=== PATIENT | female | born 1965 | race Caucasian/White ===

== ENCOUNTER 2016-12-23 14:56 | Emergency (ER) | payer BC ==
[~2016-12-23] VITALS: Ht 162.6 cm; Wt 46.8 kg
[2016-12-23 14:59] VITALS: BP 163/73; TEMP 98.2
[2016-12-23] MEDS ORDERED: CELEXA10 MG PO (15:03)
[2016-12-23] MEDS ORDERED: ZOFRAN ODT4 MG PO (16:55)
[2016-12-23] MEDS ORDERED: NORCO 325 MG-51 TAB PO (16:55)
[2016-12-23 17:10] VITALS: PULSE 72
== END 2016-12-23 17:10 | disposition home or self-care (01) ==
LOC: COL.ER 14:56
DX: S46.912A Strain of unspecified muscle, fascia and tendon at shoulder and upper arm level, left arm, initial encounter (principal); W10.8XXA Fall (on) (from) other stairs and steps, initial encounter; Y92.008 Other place in unspecified non-institutional (private) residence as the place of occurrence of the external cause
CPT/HCPCS: J1885

== ENCOUNTER 2017-01-29 11:01 | Emergency (ER) | payer BC ==
[~2017-01-29] VITALS: Ht 162.6 cm; Wt 47.7 kg
[~2017-01-29 11:01] MED LIST: CELEXA10 MG PO; NORCO 325 MG-51 TAB PO; ZOFRAN ODT4 MG PO
[2017-01-29 11:06] VITALS: BP 146/75; TEMP 98.1
[2017-01-29] MEDS ORDERED: ALEVE 220MG220 MG PO (11:08)
[2017-01-29] MEDS ORDERED: NORCO 325 MG-51 TAB PO (12:15)
[2017-01-29 12:23] VITALS: PULSE 66
== END 2017-01-29 12:34 | disposition home or self-care (01) ==
LOC: COL.ER 11:01
DX: S62.316A Displaced fracture of base of fifth metacarpal bone, right hand, initial encounter for closed fracture (principal); F17.210 Nicotine dependence, cigarettes, uncomplicated; W22.8XXA Striking against or struck by other objects, initial encounter; Y92.830 Public park as the place of occurrence of the external cause; Z86.69 Personal history of other diseases of the nervous system and sense organs

== ENCOUNTER → 2017-09-08 | Outpatient (CLI) | payer OTHER ==
[~2017-09-08] MED LIST changes: +ALEVE 220MG220 MG PO; +ASPIRIN 81M81 MG/TA2 PO; +FLEXERIL 1010 MG/TAB PO
== END ==
LOC: COL.PUL 09:48
DX: Z02.71 Encounter for disability determination (principal); Z87.891 Personal history of nicotine dependence; Z90.49 Acquired absence of other specified parts of digestive tract

== ENCOUNTER 2018-01-12 11:31 | Emergency (ER) | payer SELFPAY ==
[~2018-01-12] VITALS: Ht 162.6 cm; Wt 57.0 kg
[2018-01-12 11:36] VITALS: TEMP 98.9
[2018-01-12 12:02] LABS: BASO # 0.1 (0.0-0.2); BASO % 0.6 % (0.0-2.0); EOS # 0.2 (0.0-0.7); EOS % 1.9 % (0-4.0); GRAN % 59.2 % (42.2-75.2); HEMATOCRIT 43.2 % (37.0-47.0); HEMOGLOBIN 14.8 g/dl (12.5-16.0); LYMPH # 2.7 (1.2-3.4); LYMPH % 32.3 % (20.0-51.0); MEAN CELL VOLUME 91 fl (80.0-100.0); MEAN CORPUSCULAR HEMOGLOBIN 31 pg (27.0-31.0); MEAN CORPUSCULAR HGB CONC 34 g/dl (33.0-37.0); MEAN PLATELET VOLUME 9.7 fl (7.4-10.4); MONO # 0.5 (0.1-0.6); MONO % 5.8 % (1.7-9.3); PLATELET COUNT 350 K/mm3 (130-400); RED BLOOD COUNT 4.74 M/mm3 (4.10-5.30); REDCELL DISTRIBUTION WIDTH-CV 12.2 % (11.5-14.5)
[2018-01-12 12:12] LABS: ALANINE AMINOTRANSFERASE 25 U/L (9-52); ALBUMIN 4.6 gm/dL (3.5-5.0); ALKALINE PHOSPHATASE 154 U/L (50-136); ANION GAP 12 mmol/L (7-16); AST,SGOT 25 U/L (15-37); BILIRUBIN,TOTAL 0.5 mg/dL (0.0-1.0); BLOOD UREA NITROGEN 8 mg/dL (7-17); CALCIUM 9.4 mg/dL (8.4-10.2); CARBON DIOXIDE 25 mmol/L (22-30); CHLORIDE 102 mmol/L (98-107); CREATININE, serum 0.76 mg/dL (0.52-1.25); GLUCOSE 111 mg/dL (74-106); POTASSIUM 3.9 mmol/L (3.4-5.0); SODIUM 139 mmol/L (137-145); TOTAL PROTEIN 7.6 gm/dL (6.4-8.2)
[2018-01-12 12:26] LABS: PROTHROMBIN TIME 11.7 SECONDS (9.7-12.8)
[2018-01-12 12:28] LABS: PARTIAL THROMBOPLASTIN TIME 34.9 SECONDS (26.0-37.0); PROLACTIN 6.3 ng/mL (3.0-18.6)
[2018-01-12 12:35] LABS: TROPONIN-I < 0.012 ng/mL (0.000-0.034)
[2018-01-12] MEDS ORDERED: BONINE25 MG PO (14:22)
[2018-01-12 14:32] VITALS: BP 128/77; PULSE 56
== END 2018-01-12 14:33 | disposition home or self-care (01) ==
LOC: COL.ER 11:31
PROVIDERS: Family Medicine
DX: R55 Syncope and collapse (principal); R42 Dizziness and giddiness; R51 Headache; F17.210 Nicotine dependence, cigarettes, uncomplicated
CPT/HCPCS: J1885; J2550; J7030

== ENCOUNTER → 2018-03-09 | Outpatient (CLI) | payer OTHER ==
[~2018-03-09] MED LIST changes: +BONINE25 MG PO
== END ==
LOC: COL.RAD 09:45
DX: R10.13 Epigastric pain (principal); R14.0 Abdominal distension (gaseous); Z90.49 Acquired absence of other specified parts of digestive tract

== ENCOUNTER → 2018-04-14 | Outpatient (CLI) | payer OTHER | LOC: COL.VAS 10:02 | DX: I34.0 Nonrheumatic mitral (valve) insufficiency (principal); R55 Syncope and collapse; F17.200 Nicotine dependence, unspecified, uncomplicated ==